=== PATIENT | male | born 1975 | race American Indian/Alaskan Native ===

== ENCOUNTER 2021-03-18 10:48 | Outpatient (CLI) | payer OTHER ==
--- NOTE | 2021-03-18 11:47 | XRay Report ---
RIGHT ANKLE 4 VIEWS INDICATION: Right ankle pain. COMPARISON: None. IMPRESSION: No acute osseous or soft tissue abnormality. Mild osteoarthritic changes are noted at the ankle joint. The soft tissues are mildly edematous. RIGHT FOOT 3 VIEWS INDICATION: RIGHT FOOT PAIN. COMPARISON: None. IMPRESSION: No acute osseous or soft tissue abnormality. Moderate to severe osteoarthritic change s are identified at the first metatarsophalangeal joint. Mild osteoarthritic changes in the midfoot. No erosive joint pathology. Small plantar spur is noted. Signer Name: Xavier Garcia Jr, MD Signed: 03/18/2021 11:43 AM Workstation Name: [id number]
== END 2021-03-18 10:49 | disposition home or self-care (01) ==
LOC: XRAY 10:48
PROVIDERS: ATTEND Internal Medicine
DX: M19.071 Primary osteoarthritis, right ankle and foot (principal); M79.89 Other specified soft tissue disorders; M77.8 Other enthesopathies, not elsewhere classified